=== PATIENT | female | born 1990 | race Caucasian/White ===

== ENCOUNTER 2021-09-18 23:26 | Outpatient (CLI) | payer OTHER ==
[~2021-09-18] VITALS: Ht 170.2 cm; Wt 75.5 kg
--- NOTE | 2021-09-18 23:35 | NUR ---
G1 at 40 weeks and 2 days arrives to unit with complaint of contractions every 5 minutes for the last hour. Pt states contractions started around 1900 and have increased in intensity. Pt denies any problems this . Pt reports good movement, denies vaginal bleeding, or LOF. Clean gown on. Pt oriented to room, bed in low and locked position, call light within reach. US and toco explained and applied. Vital signs obtained. Admission assessment started. SVE /-2
[2021-09-19] VITALS: BP 124/68; PULSE 70; TEMP 98.3
--- NOTE | 2021-09-19 00:20 | NUR ---
Category 1 FHR tracing obtained. Monitors off so patient can ambulate per her request.
[2021-09-19] MEDS ORDERED: PRENATAL (00:24)
--- NOTE | 2021-09-19 00:50 | NUR ---
SVE unchanged from previous exam. Pt agreeable to discharge plan. Discharge instructions reviewed with patient and spouse. Instructions given. Pt seen ambulating off unit at 0100.
[2021-09-20] MEDS ORDERED: IBU600 MG PO (09:43)
== END 2021-09-19 01:00 | disposition home or self-care (01) ==
LOC: LDRO 23:26
DX: O47.1 False labor at or after 37 completed weeks of gestation (principal); Z3A.40 40 weeks gestation of pregnancy

== ENCOUNTER 2021-09-19 05:15 | Outpatient (CLI) | payer OTHER ==
[~2021-09-19] VITALS: Ht 170.2 cm; Wt 75.5 kg
[~2021-09-19 05:15] MED LIST: PRENATAL
--- NOTE | 2021-09-19 05:20 | NUR ---
G1 at 40 weeks and 3 days arrives to unit with complaint of contractions every 3 minutes. Pt reports contractions have been getting stronger throughout the night. Pt reports some spotting, denies LOF, and has felt good movement. Pt oriented to room, call light within reach, bed in low and locked position. Clean gown on. US and toco explained and applied. Admission assessment started. Vital signs obtained. SVE /-2.
[2021-09-19 05:50] VITALS: BP 116/66; PULSE 67; TEMP 97.8
--- NOTE | 2021-09-19 05:50 | NUR ---
Category 1 FHR tracing obtained. Monitors off so patient can ambulate.
[2021-09-19 06:15] VITALS: BP 109/58; PULSE 67; TEMP 98.4
--- NOTE | 2021-09-19 06:27 | NUR ---
[address] PUENTE CALLED WITH UPDATE. ORDERS TO DISMISS TO HOME TO FOLLOW UP WITH DR RODRIGUEZ. CALL WITH QUESTIONS.
--- NOTE | 2021-09-19 06:38 | NUR ---
2842 ALL DISCHARGE INSTRUCTIONS GIVEN TO PATIENT AND WITH VERBAL UNDERSTANDING NOTED. DENIES NEEDS AND DISMISSED TO HOME
[2021-09-20] MEDS ORDERED: IBU600 MG PO (09:43)
== END 2021-09-19 06:41 | disposition home or self-care (01) ==
LOC: LDRO 05:15
DX: O47.1 False labor at or after 37 completed weeks of gestation (principal); Z3A.40 40 weeks gestation of pregnancy

== ENCOUNTER 2021-09-19 13:03 | Inpatient (IN) | payer OTHER ==
[2021-09-19] VITALS (13 sets, daily range): BP systolic 109–160; BP diastolic 55–83; PULSE 64–92; TEMP 97.8–98.6
[~2021-09-19] VITALS: Ht 170.2 cm; Wt 75.5 kg
[2021-09-19 13:25] LABS: BASO # 0.1 K/mm3 (0.0-0.2); BASO % 0.4 % (0.0-2.0); GRAN # 16.4 K/mm3 (1.4-6.5); GRAN % 81.4 % (42.2-75.2); LYMPH # 2.8 K/mm3 (1.2-3.4); LYMPH % 13.7 % (20.0-51.0); MEAN CELL VOLUME 91 fl (80.0-100.0); MEAN CORPUSCULAR HEMOGLOBIN 33 pg (27-31); MEAN CORPUSCULAR HGB CONC 36 g/dl (33.0-37.0); MEAN PLATELET VOLUME 9.6 fl (7.4-10.4); MONO # 0.8 K/mm3 (0.1-0.6); MONO % 3.9 % (1.7-9.3); PLATELET COUNT 253 K/mm3 (130-400); RED BLOOD COUNT 4.61 M/mm3 (4.10-5.30); REDCELL DISTRIBUTION WIDTH-CV 12.4 % (11.5-14.5)
--- NOTE | 2021-09-19 13:54 | NUR ---
0574 PATIENT HERE FOR COMPLAINTS OF CONTRACTIONS GETTING MORE INTENSE. SVE 10/100/+[address] RODRIGUEZ CALLED TO COME NOW FOR DELIVERY. EFM ON FHT 130 BABY VERY ACTIVE. CHARGE NURSE AND NURSERY CALLED FOR DELIVERY. CONSENTS SIGNED BY . ASSESSMENT COMPLETED BETWEEN CONCTRACTIONS. IV STARTED IN LEFT FA AT THIS TIME. LABS DRAWN AND SENT TO LAB.
--- NOTE | 2021-09-19 13:57 | NUR ---
1306 DR RODRIGUEZ HERE AND AROM WITH [employer] FOR LARGE AMOUNT CLEAR FLUID NOTED. PATIENT WILL START PUSHING AT THIS TIME.
--- NOTE | 2021-09-19 13:58 | NUR ---
1314 BABY GIRL BORN VIA BY DR RODRIGUEZ. PATIENT TOLERATES WELL. LIDOCAINE GIVEN FOR REPAIR BY DR RODRIGUEZ. SMALL AMOUNT OF BLEEDING NOTED. FUNDUS FIRM. BABY SKI TO SKIN AT THIS TIME. 1316 CORD CLAMPED AND CUT BY AND BABY REMAINS ON MOMS CHEST. 1320 PLACENTA DELIVERED AND PITOCIN STARTED AT 333 PER PROTOCOL. FUNDUS FIRM AND BLEEDING WITH IN NORMAL LIMITS. BABY TO BREAST. N
[2021-09-20 03:00] VITALS: BP 113/59; PULSE 81; TEMP 97.8
[2021-09-20 08:00] VITALS: BP 115/59; PULSE 67; TEMP 98
[2021-09-20] MEDS ORDERED: IBU600 MG PO (09:43)
--- NOTE | 2021-09-20 12:35 | NUR ---
Initial visit; Parents thanked Packing Line Worker for offering congratulations and God's blessings for the of their daughter. Packing Line Worker thanked family for choosing [facility].
[2021-09-20 19:45] VITALS: BP 110/63; PULSE 66
[2021-09-20 20:25] VITALS: TEMP 98.5
[2021-09-21 07:35] VITALS: BP 109/67; PULSE 65; TEMP 97.7
[2021-09-21 14:00] VITALS: BP 108/66; PULSE 64; TEMP 99
== END 2021-09-21 14:55 | disposition home or self-care (01) | DRG 807 ==
LOC: LDRO 13:03 → LDR 13:09 → OB 13:09
PROVIDERS: ADMIT Obstetrics & Gynecology
PROC: 10E0XZZ Delivery of Products of Conception, External Approach (ICD-10-PCS; principal; 2021-09-19)
PROC: 0W8NXZZ Division of Female Perineum, External Approach (ICD-10-PCS; 2021-09-19)
DX: O80 Encounter for full-term uncomplicated delivery (principal); Z37.0 Single live birth; Z3A.40 40 weeks gestation of pregnancy; Z23 Encounter for immunization
CPT/HCPCS: J2590; J7120

== ENCOUNTER → 2021-10-01 | Outpatient (CLI) | payer OTHER ==
[~2021-10-01] MED LIST changes: +IBU600 MG PO
== END ==
LOC: MC.RAD 10:00
DX: R22.31 Localized swelling, mass and lump, right upper limb (principal)